=== PATIENT | female | born 1990 | race Caucasian/White ===

== ENCOUNTER 2016-07-02 21:22 | Emergency (ER) | payer OTHER ==
[~2016-07-02] VITALS: Ht 162.6 cm; Wt 90.0 kg
[2016-07-02 22:14] LABS: HEMATOCRIT 40.7 % (36.0-46.0); MCH 28.5 PG (29.0-34.0); MCHC 33.7 G/DL (30.0-36.0); MCV 84.6 FL (83-99); MEAN PLAT.VOLUME 11.5 uM^3 (9.5-12.4); PLATELET COUNT 257 K/uL (156-360); RBC DIS.WIDTH-CV 13.1 % (11.8-14.6); RBC DIS.WIDTH-SD 39.9 % (39-53); RED BLOOD COUNT 4.81 M/uL (3.80-5.20); WHITE BLOOD COUNT 9.5 K/uL (4.1-10.2)
[2016-07-02 22:26] LABS: CHLORIDE 105 mEq/L (99-109); POTASSIUM 3.4 mEq/L (3.7-5.4); SODIUM 140 mEq/L (136-147)
[2016-07-02 22:27] LABS: GLUCOSE 104 mg/dL (70-99)
[2016-07-02 22:29] LABS: ANION GAP 11 MEQ/L (2-14)
[2016-07-02 22:31] LABS: GFR ESTIMATE (CALCULATED) > 59 mL/min/
[2016-07-02 22:32] LABS: UREA NITROGEN (BUN) 13 mg/dL (9-23)
[2016-07-02 23:29] LABS: ADD MIUA? YES; BILIRUBIN NEGATIVE; BLOOD SMALL; COLOR YELLOW ((YELLOW)); GLUCOSE (STRIP) NEGATIVE; KETONES NEGATIVE; LEUKOCYTES NEGATIVE; NITRITE NEGATIVE; PROTEIN (STRIP) NEGATIVE; SPECIFIC GRAVITY 1.016 (1.000-1.030); UROBILINOGEN 0.2 MG/DL (0.2-1.0)
[2016-07-02 23:59] LABS: BACTERIA NONE SEEN /HPF; EPITHELIAL CELLS RARE /HPF; MUCUS TRACE /LPF; RED BLOOD CELLS 0-5 /HPF (0-5); UCUL ADDED? NO; WHITE BLOOD CELLS 0-5 /HPF (0-5)
[2016-07-03] MEDS ORDERED: NORCO 5/3251 TABLET PO (00:17)
[2016-07-03] MEDS ORDERED: FLOMAX0.4 MG PO (00:17)
[2016-07-03] MEDS ORDERED: ZOFRAN ODT8 MG PO (00:17)
[2016-07-03 00:26] VITALS: BP 136/89
== END 2016-07-03 00:36 | disposition home or self-care (01) ==
LOC: EME 21:22
DX: N20.0 Calculus of kidney (principal)
CPT/HCPCS: 76770; 80048; 81003; 85027; 99281; 99284